=== PATIENT | female | born 1985 | race Caucasian/White ===

== ENCOUNTER 2017-02-08 14:17 | Emergency (ER) | payer OTHER ==
[~2017-02-08 14:17] MED LIST: ALBUTEROL17 GM INH; AURALGAN EAR DR14 ML AS; BACTRIM DS TABL1 TA1 PO; BENZONATATE PO; CLEOCIN HCL300 M1 PO; CLINDAMYCIN HC300 MG PO; CORTISPORI3.5 GM OPT AS; DULERA 100 MCG/13 GM IH; ERYTHROMYCIN B500 MG PO; FLONASE16 GM; IBUPROFEN800 MG PO; LORTAB 5/500 TA1 TA1 PO; MAGIC MOUTHWASH PO; MOTRIN400 M1 PO; MOTRIN400 MG PO; MOTRIN600 MG PO; PENICILLIN PO; PHENERGAN25 MG PO; PREDNISONE10 MG PO; ULTRAM PO; VICODIN 5/1 TAB 5/50 PO; ZYRTEC10 M2 PO
[2017-02-08] MEDS ORDERED: ALBUTEROL17 GM INH (14:40)
== END 2017-02-08 14:55 | disposition home or self-care (01) ==
LOC: SED 14:17
DX: S20.361A Insect bite (nonvenomous) of right front wall of thorax, initial encounter (principal); J45.909 Unspecified asthma, uncomplicated; Z90.49 Acquired absence of other specified parts of digestive tract; Z98.51 Tubal ligation status; F17.200 Nicotine dependence, unspecified, uncomplicated; Z88.0 Allergy status to penicillin; Z88.8 Allergy status to other drugs, medicaments and biological substances; W57.XXXA Bitten or stung by nonvenomous insect and other nonvenomous arthropods, initial encounter; Y92.9 Unspecified place or not applicable
CPT/HCPCS: 99282

== ENCOUNTER 2017-02-13 12:02 | Emergency (ER) | payer OTHER | END 2017-02-13 13:23 | disposition home or self-care (01) | LOC: SED 12:02 | DX: L03.313 Cellulitis of chest wall (principal); F17.200 Nicotine dependence, unspecified, uncomplicated; W57.XXXA Bitten or stung by nonvenomous insect and other nonvenomous arthropods, initial encounter; Y92.9 Unspecified place or not applicable | CPT/HCPCS: 99282 ==